=== PATIENT | female | born 1950 | race Caucasian/White ===

== ENCOUNTER 2016-10-16 11:00 | Emergency (ER) | payer BC ==
[~2016-10-16] VITALS: Ht 165.1 cm; Wt 60.0 kg
[2016-10-16 11:16] VITALS: BP_SYST 116; BP_DIAS 82; BP_DIAS 88; PULSE 169; PULSE 88; RESP 16; TEMP 98.2; O2SAT 96
[2016-10-16] MEDS ORDERED: SODIUM CHLOR 0.9% 1000 ML INJ 1,000 ML IV ONE ×2 (12:00→13:00)
[2016-10-16] MEDS ORDERED: SODIUM CHLORIDE 0.9% FLUSH 5 ML FLUSH IVF PRN (12:00)
[2016-10-16] MEDS ORDERED: ONDANSETRON HCL 4 MG/2 ML VIAL IVP ONE (12:00)
[2016-10-16 12:05] VITALS: RESP 18; O2SAT 98
[2016-10-16] MEDS ORDERED: WELC625T2 PO (12:08)
--- NOTE | 2016-10-16 12:17 | PD ---
HPI Chief Complaint: General Weakness Time Seen by Provider: 11:53 Travel History International Travel<30 days: Yes Contact w/Intl Traveler<30days: Yes Name of Country Traveled to: [facility] Traveled to known affect area: No History of Present Illness HPI The patient is a 66-year-old female who presents emergency department for generalized weakness and syncope. The patient states she was waiting in line yesterday at a restaurant, when she suddenly felt dizzy, lightheaded, felt like she was "owing to go down". The patient states she was able to place arm out and fall on a table, the patient thinks there was a brief loss of consciousness. The patient states when she awakened she was extremely diaphoretic. The patient states that the pulled her out of the sun and sat her in the shade which she drank several glasses of water and felt better. The patient then ate lunch, however, when she returned home she developed some nausea and epigastric discomfort. Today the patient complains of nausea but denies any vomiting or abdominal pain. She does complain of generalized weakness and mild dizziness with standing upright. The patient denies any history of arrhythmias or previous syncopal episodes. The patient does have a history of hyperlipidemia. The patient denies any acute chest pain, shortness of breath, or palpitations. The patient does not have a primary physician in the local area, is from [place]. [facility] Past Medical History Narrative Medical Hyperlipidemia Social History Tobacco Use: No Allergies-Medications (Allergen,Severity, Reaction): Coded Allergies: HMG-CoA Reductase Inhibitors (Verified Adverse Reaction, Intermediate, DARK URINE, ABD PAIN, 10/16/16) Reported Meds & Prescriptions Reported Meds & Active Scripts Active Reported Welchol (Colesevelam HCl) 625 Mg Tab 1,250 Mg PO DAILY Review of Systems Except as stated in HPI: all other systems reviewed are Neg General / Constitutional: No: Fever HENT: Positive: Lightheadedness Cardiovascular: Positive: Diaphoresis, Syncope, No: Chest Pain or Discomfort, Tachycardia Respiratory: No: Shortness of Breath Gastrointestinal: Positive: Nausea, Abdominal Pain, No: Vomiting Musculoskeletal: Positive: Weakness Neurologic: Positive: Weakness, Dizziness, Syncope Physical Exam Narrative GENERAL: Awake, alert, pleasant 66-year-old female who appears her stated age and is in no acute respiratory distress. SKIN: Warm and dry. HEAD: Atraumatic. Normocephalic. EYES: Pupils equal and round. No injection or drainage. ENT: No nasal bleeding or discharge. Mucous membranes pink and moist. NECK: Trachea midline. No JVD. CARDIOVASCULAR: Regular rate and rhythm. No murmur appreciated. RESPIRATORY: No accessory muscle use. Clear to auscultation. Breath sounds equal bilaterally. GASTROINTESTINAL: Abdomen soft, non-tender, nondistended. No rebound tenderness. MUSCULOSKELETAL: No obvious deformities. No clubbing. No cyanosis. No edema. NEUROLOGICAL: Awake and alert. No obvious cranial nerve deficits. Motor grossly within normal limits. Normal speech. PSYCHIATRIC: Appropriate mood and affect; insight and judgment normal. Data Data Last Documented VS Vital Signs Date Time Temp Pulse Resp B/P Pulse Ox O2 Delivery O2 Flow Rate FiO2 10/16/16 12:43 69 16 132/82 71 16 123/81 92 16 105/78 10/16/16 12:05 98 Room Air 10/16/16 11:16 98.2 Orders Electrocardiogram (10/16/16 12:00) Complete Blood Count With Diff (10/16/16 12:00) Comprehensive Metabolic Panel (10/16/16 12:00) Magnesium (Mg) (10/16/16 12:00) Ckmb (Isoenzyme) Profile (10/16/16 12:00) Troponin I (10/16/16 12:00) Ecg Monitoring (10/16/16 12:00) Iv Access Insert/Monitor (10/16/16 12:00) Oximetry (10/16/16 12:00) Ondansetron Inj (Zofran Inj) (10/16/16 12:00) Sodium Chloride 0.9% Flush (Ns Flush) (10/16/16 12:00) Sodium Chlor 0.9% 1000 Ml Inj (Ns 1000 M (10/16/16 12:00) Orthostatic Vital Signs (10/16/16 12:00) Sodium Chlor 0.9% 1000 Ml Inj (Ns 1000 M (10/16/16 13:00) CKMB (10/16/16 12:20) CKMB% (10/16/16 12:20) Labs Laboratory Tests Test 10/16/16 12:20 White Blood Count 4.5 TH/MM3 Red Blood Count 4.24 MIL/MM3 Hemoglobin 13.4 GM/DL Hematocrit 40.1 % Mean Corpuscular Volume 94.7 FL Mean Corpuscular Hemoglobin 31.7 PG Mean Corpuscular Hemoglobin 33.4 % Concent Red Cell Distribution Width 11.9 % Platelet Count 222 TH/MM3 Mean Platelet Volume 7.3 FL Neutrophils (%) (Auto) 49.0 % Lymphocytes (%) (Auto) 37.0 % Monocytes (%) (Auto) 10.5 % Eosinophils (%) (Auto) 2.6 % Basophils (%) (Auto) 0.9 % Neutrophils # (Auto) 2.2 TH/MM3 Lymphocytes # (Auto) 1.7 TH/MM3 Monocytes # (Auto) 0.5 TH/MM3 Eosinophils # (Auto) 0.1 TH/MM3 Basophils # (Auto) 0.0 TH/MM3 CBC Comment DIFF FINAL Differential Comment Sodium Level 137 MEQ/L Potassium Level 4.1 MEQ/L Chloride Level 102 MEQ/L Carbon Dioxide Level 24.3 MEQ/L Anion Gap 11 MEQ/L Blood Urea Nitrogen 10 MG/DL Creatinine 0.77 MG/DL Estimat Glomerular Filtration 75 ML/MIN Rate Random Glucose 85 MG/DL Calcium Level 8.8 MG/DL Magnesium Level 2.3 MG/DL Total Bilirubin 0.4 MG/DL Aspartate Amino Transf 34 U/L (AST/SGOT) Alanine Aminotransferase 42 U/L (ALT/SGPT) Alkaline Phosphatase 78 U/L Total Creatine Kinase 154 U/L Creatine Kinase MB 2.9 NG/ML Troponin I LESS THAN 0.02 NG/ML Total Protein 8.1 GM/DL Albumin 3.9 GM/DL MDM Medical Decision Making Medical Screen Exam Complete: Yes Emergency Medical Condition: Yes Medical Record Reviewed: Yes Interpretation(s) EKG reveals normal sinus rhythm with a rate of 77. Inverted T-wave in lead 3. Q wave noted in lead V1 and V2. QTC 429 ms. QT is less than half RR interval. Laboratory Tests Test 10/16/16 12:20 White Blood Count 4.5 TH/MM3 Red Blood Count 4.24 MIL/MM3 Hemoglobin 13.4 GM/DL Hematocrit 40.1 % Mean Corpuscular Volume 94.7 FL Mean Corpuscular Hemoglobin 31.7 PG Mean Corpuscular Hemoglobin 33.4 % Concent Red Cell Distribution Width 11.9 % Platelet Count 222 TH/MM3 Mean Platelet Volume 7.3 FL Neutrophils (%) (Auto) 49.0 % Lymphocytes (%) (Auto) 37.0 % Monocytes (%) (Auto) 10.5 % Eosinophils (%) (Auto) 2.6 % Basophils (%) (Auto) 0.9 % Neutrophils # (Auto) 2.2 TH/MM3 Lymphocytes # (Auto) 1.7 TH/MM3 Monocytes # (Auto) 0.5 TH/MM3 Eosinophils # (Auto) 0.1 TH/MM3 Basophils # (Auto) 0.0 TH/MM3 CBC Comment DIFF FINAL Differential Comment Sodium Level 137 MEQ/L Potassium Level 4.1 MEQ/L Chloride Level 102 MEQ/L Carbon Dioxide Level 24.3 MEQ/L Anion Gap 11 MEQ/L Blood Urea Nitrogen 10 MG/DL Creatinine 0.77 MG/DL Estimat Glomerular Filtration 75 ML/MIN Rate Random Glucose 85 MG/DL Calcium Level 8.8 MG/DL Magnesium Level 2.3 MG/DL Total Bilirubin 0.4 MG/DL Aspartate Amino Transf 34 U/L (AST/SGOT) Alanine Aminotransferase 42 U/L (ALT/SGPT) Alkaline Phosphatase 78 U/L Total Creatine Kinase 154 U/L Creatine Kinase MB 2.9 NG/ML Troponin I LESS THAN 0.02 NG/ML Total Protein 8.1 GM/DL Albumin 3.9 GM/DL Differential Diagnosis Differential diagnosis includes syncope, vasovagal syncope, neurogenic cardiogenic syncope, arrhythmia, aortic stenosis, dehydration, orthostatic hypotension, electrolyte abnormality. Narrative Course IV was established, labs are drawn and sent, and the patient was placed on cardiac telemetry monitoring and continuous pulse oximetry monitoring. EKG was ordered and interpreted. Orthostatic vital signs were obtained. The patient was administered 1 L of fluids and Zofran 4 mg intravenously. Laboratory evaluation was unremarkable. Orthostatic vital signs were positive, the patient 's systolic blood pressure went from 132-109 and heart rate went from 60s to the 90s, therefore, patient was administered a second liter of IV fluids. The patient was reevaluated at 1:20 PM, her symptoms had significantly improved. I believe the patient's presyncopal/syncopal episode yesterday with the diaphoresis and nausea was related to vasovagal and possibly dehydration. The patient had no significant EKG abnormalities and cardiac telemetry did not reveal any abnormalities. The patient was not hypoxic or tachycardic, I do not believe this is related to pulmonary embolism. The patient had no headache and was nonfocal on exam, do not believe its related to subarachnoid hemorrhage. I do not believe the patient had an arrhythmia at that time, however, did advise her it is a possibility and that she needs to follow-up with her power chisel operator. Advised her to return if symptoms worsen or return, and the follow-up with a power chisel operator for outpatient echocardiogram. Patient agrees and understands. The patient will be provided a copy of her labs at discharge. Diagnosis Primary Impression: Syncope Qualified Code: R55 - Syncope, unspecified syncope type Patient Instructions: General Instructions Additional Instructions: Plenty fluids to stay hydrated. Follow-up with her power chisel operator for outpatient echocardiogram. Return if symptoms worsen or progress. Plenty fluids to stay hydrated. Please provide the patient a copy of her EKG and lab work at discharge. Disposition: 01 DISCHARGE HOME Condition: Stable Brandon Mcelroy MD Oct 16, 2016 12:17
[2016-10-16 12:32] LABS: AUTOMATED NEUTROPHIL # 2.2 TH/MM3 (1.8-7.7); BASOPHIL % 0.9 % (0.0-2.0); EOSINOPHIL # 0.1 TH/MM3 (0-0.4); EOSINOPHIL % 2.6 % (0.0-4.0); HEMATOCRIT 40.1 % (35.0-46.0); LYMPHOCYTE # 1.7 TH/MM3 (1.0-4.8); MEAN CELL VOLUME 94.7 FL (80.0-100.0); MEAN CORPUSCULAR HEMOGLOBIN 31.7 PG (27.0-34.0); MEAN CORPUSCULAR HGB CONC 33.4 % (32.0-36.0); MONO % 10.5 % (0.0-8.0); PLATELET COUNT 222 TH/MM3 (150-450); RED BLOOD COUNT 4.24 MIL/MM3 (4.00-5.30); RED CELL DISTRIBUTION WIDTH 11.9 % (11.6-17.2); WHITE BLOOD COUNT 4.5 TH/MM3 (4.0-11.0)
[2016-10-16 12:35] LABS: HEMO FLAGS DIFF FINAL
[2016-10-16 12:38] LABS: CHLORIDE 102 MEQ/L (98-107); POTASSIUM 4.1 MEQ/L (3.5-5.1); SODIUM (NA) 137 MEQ/L (136-145)
[2016-10-16 12:42] LABS: ANION GAP 11 MEQ/L (5-15); BICARBONATE 24.3 MEQ/L (21.0-32.0); BLOOD UREA NITROGEN 10 MG/DL (7-18); MAGNESIUM 2.3 MG/DL (1.5-2.5)
[2016-10-16 12:43] VITALS: BP_SYST 105; BP_SYST 123; BP_SYST 132; BP_DIAS 78; BP_DIAS 81; BP_DIAS 82; RESP 16
[2016-10-16 12:45] LABS: ALT (GPT) 42 U/L (10-53); AST (GOT) 34 U/L (15-37)
[2016-10-16 12:46] LABS: GLOMERULAR FILTRATION RATE 75 ML/MIN (>89)
[2016-10-16 12:47] LABS: TOTAL BILIRUBIN ADULT 0.4 MG/DL (0.2-1.0)
[2016-10-16 12:48] LABS: ALKALINE PHOSPHATASE 78 U/L (45-117); CREATINE KINASE 154 U/L (26-192)
[2016-10-16 13:01] LABS: CKMB 2.9 NG/ML (0.5-3.6)
[2016-10-16 13:22] VITALS: BP 152/93; PULSE 68; RESP 16; O2SAT 98
[2016-10-16 14:30] VITALS: BP 140/82; PULSE 76; RESP 18; O2SAT 98
--- NOTE | 2016-10-17 11:33 | EKG ---
Date Performed: 10/16/2016 Time Performed: 12:14:30 PTAGE: 66 years EKG: Sinus rhythm Possible septal infarct - age undetermined Abnormal ECG NO PREVIOUS TRACING DOCTOR: Hal Seo Interpretating Date/Time 10/17/2016 11:33:03
== END 2016-10-16 14:36 | disposition home or self-care (01) ==
LOC: PHED 11:00
DX: R55 Syncope and collapse (principal); E78.5 Hyperlipidemia, unspecified
CPT/HCPCS: 80053; 82550; 82552; 83735; 84484; 85025; 93005; 96361; 96374; 99285; J2405; J7030

== ENCOUNTER 2017-11-19 17:25 | Emergency (ER) | payer MEDICARE ==
[~2017-11-19] VITALS: Ht 165.1 cm; Wt 61.0 kg
[~2017-11-19 17:25] MED LIST: COLE625 PO
[2017-11-19 17:28] VITALS: BP 148/80; PULSE 90; RESP 18; TEMP 99.7; O2SAT 97
[2017-11-19] MEDS ORDERED: SODIUM CHLORIDE 0.9% FLUSH 10 ML FLUSH IV FLUSH PRN (17:45)
[2017-11-19] MEDS ORDERED: KETOROLAC TROMETHAMINE 30 MG/ML (IVP) VIAL IVP ONE (17:45)
[2017-11-19] MEDS ORDERED: SODIUM CHLOR 0.9% 1000 ML INJ 1,000 ML IV SCH (17:45)
--- NOTE | 2017-11-19 18:05 | PD ---
HPI Chief Complaint: Abdominal Pain Time Seen by Provider: 17:45 Travel History International Travel<30 days: No Contact w/Intl Traveler<30days: No Traveled to known affect area: No History of Present Illness HPI 67-year-old female patient presents to the ER today with 2 days history of left sided abdominal pains which she currently rates an 8 out of 10. She denies any nausea, vomiting, fevers, urinary symptoms, or any other symptoms. She states that pain is worse with movement, was hurting today when she was riding a bicycle, and felt like it was hurting with every bump. She denies any previous symptoms. Modifying Factors: None Associated Signs & Symptoms: Left-sided abdominal pain Risk Factors: None PFSH Past Medical History High Cholesterol: Yes ?: Not Social History Alcohol Use: Yes (daily 3 mixed drinks) Tobacco Use: No Substance Use: No Allergies-Medications (Allergen,Severity, Reaction): Coded Allergies: amlodipine (Unverified Adverse Reaction, Intermediate, DARK URINE, ABD PAIN, 11/19/17) atorvastatin (Unverified Adverse Reaction, Intermediate, DARK URINE, ABD PAIN, 11/19/17) pravastatin (Unverified Adverse Reaction, Intermediate, DARK URINE, ABD PAIN, 11/19/17) simvastatin (Unverified Adverse Reaction, Intermediate, DARK URINE, ABD PAIN, 11/19/17) Reported Meds & Prescriptions Reported Meds & Active Scripts Active Reported Welchol (Colesevelam HCl) 625 Mg Tab 1,250 Mg PO DAILY Review of Systems Except as stated in HPI: all other systems reviewed are Neg Physical Exam Narrative GENERAL: Well-developed elderly female patient currently in mild distress. Awake and oriented 3. SKIN: Focused skin assessment warm/dry. HEAD: Atraumatic. Normocephalic. EYES: Pupils equal and round. No scleral icterus. No injection or drainage. ENT: No nasal bleeding or discharge. Mucous membranes pink and moist. NECK: Trachea midline. No JVD. CARDIOVASCULAR: Regular rate and rhythm. No murmur appreciated. RESPIRATORY: No accessory muscle use. Clear to auscultation. Breath sounds equal bilaterally. GASTROINTESTINAL: Abdomen soft, left-sided abdominal tenderness without guarding or rebound, nondistended. Hepatic and splenic margins not palpable. MUSCULOSKELETAL: No obvious deformities. No clubbing. No cyanosis. No edema. NEUROLOGICAL: Awake and alert. No obvious cranial nerve deficits. Motor grossly within normal limits. Normal speech. PSYCHIATRIC: Appropriate mood and affect; insight and judgment normal. Data Data Last Documented VS Vital Signs Date Time Temp Pulse Resp B/P (MAP) Pulse Ox O2 Delivery O2 Flow Rate FiO2 11/19/17 19:51 98.3 70 20 145/88 (107) 97 11/19/17 18:12 Room Air Orders Orders Complete Blood Count With Diff (11/19/17 17:45) Comprehensive Metabolic Panel (11/19/17 17:45) Lipase (11/19/17 17:45) Urinalysis - C+S If Indicated (11/19/17 17:45) Ct Abd/Pel W Iv Contrast(Rout) (11/19/17 17:45) Iv Access Insert/Monitor (11/19/17 17:45) Ecg Monitoring (11/19/17 17:45) Oximetry (11/19/17 17:45) Sodium Chlor 0.9% 1000 Ml Inj (Ns 1000 M (11/19/17 17:45) Sodium Chloride 0.9% Flush (Ns Flush) (11/19/17 17:45) Ketorolac Inj (Toradol Inj) (11/19/17 17:45) Urine Culture (11/19/17 17:55) Iohexol 350 Inj (Omnipaque 350 Inj) (11/19/17 19:20) Ed Discharge Order (11/19/17 20:13) Labs Laboratory Tests Test 11/19/17 17:55 White Blood Count 9.1 TH/MM3 Red Blood Count 3.84 MIL/MM3 Hemoglobin 12.3 GM/DL Hematocrit 36.7 % Mean Corpuscular Volume 95.5 FL Mean Corpuscular Hemoglobin 32.0 PG Mean Corpuscular Hemoglobin Concent 33.5 % Red Cell Distribution Width 12.0 % Platelet Count 225 TH/MM3 Mean Platelet Volume 7.4 FL Neutrophils (%) (Auto) 73.8 % Lymphocytes (%) (Auto) 15.7 % Monocytes (%) (Auto) 8.5 % Eosinophils (%) (Auto) 1.2 % Basophils (%) (Auto) 0.8 % Neutrophils # (Auto) 6.7 TH/MM3 Lymphocytes # (Auto) 1.4 TH/MM3 Monocytes # (Auto) 0.8 TH/MM3 Eosinophils # (Auto) 0.1 TH/MM3 Basophils # (Auto) 0.1 TH/MM3 CBC Comment DIFF FINAL Differential Comment Urine Collection Type CLEAN CATCH Urine Color YELLOW Urine Turbidity SL CLOUDY Urine pH 8.0 Urine Specific [place] 1.010 Urine Protein NEG mg/dL Urine Glucose (UA) NEG mg/dL Urine Ketones NEG mg/dL Urine Occult Blood NEG Urine Nitrite NEG Urine Bilirubin NEG Urine Urobilinogen 0.2 MG/DL Urine Leukocyte Esterase LARGE Urine RBC 0-3 /hpf Urine WBC 15-19 /hpf Urine WBC Clumps OCC Urine Squamous Epithelial Cells 0-5 /hpf Urine Bacteria MOD /hpf Microscopic Urinalysis Comment CULTURE INDICATED Urine Collection Time 17:55 Blood Urea Nitrogen 11 MG/DL Creatinine 0.74 MG/DL Random Glucose 96 MG/DL Total Protein 7.6 GM/DL Albumin 3.6 GM/DL Calcium Level 9.1 MG/DL Alkaline Phosphatase 84 U/L Aspartate Amino Transf (AST/SGOT) 21 U/L Alanine Aminotransferase (ALT/SGPT) 21 U/L Total Bilirubin 0.5 MG/DL Sodium Level 126 MEQ/L Potassium Level 3.9 MEQ/L Chloride Level 92 MEQ/L Carbon Dioxide Level 23.7 MEQ/L Anion Gap 10 MEQ/L Estimat Glomerular Filtration Rate 79 ML/MIN Lipase 152 U/L [facility] Medical Decision Making Medical Screen Exam Complete: Yes Emergency Medical Condition: Yes Medical Record Reviewed: Yes Interpretation(s) Laboratory Tests Test 11/19/17 17:55 Red Blood Count 3.84 MIL/MM3 (4.00-5.30) Neutrophils (%) (Auto) 73.8 % (16.0-70.0) Monocytes (%) (Auto) 8.5 % (0.0-8.0) Urine Leukocyte Esterase LARGE (NEG) Urine WBC 15-19 /hpf (0-5) Urine WBC Clumps OCC (NONE) Urine Bacteria MOD /hpf (NONE) Sodium Level 126 MEQ/L (136-145) Chloride Level 92 MEQ/L (98-107) Estimat Glomerular Filtration Rate 79 ML/MIN (>89) Last 24 hours Impressions Abdomen/Pelvis CT 11/19/17 0917 Signed Impressions: Service Date/Time: Sunday, November 19, 2017 19:15 - CONCLUSION: 1. Focal mural thickening of the distal sigmoid colon characteristic of an acute diverticulitis without abscess, obstruction, free fluid or free air. Howard Lebron MD Differential Diagnosis Left-sided abdominal pains: Muscular skeletal versus renal colic versus pancreatitis versus diverticulitis Narrative Course Lab work shows UTI and CAT scan is showing signs of an acute diverticulitis. At this point, my plan would be to treat both with antibiotics and have her follow-up with her primary care doctor. Return for any worsening in pain, fevers, or new symptoms as needed. The plan has been discussed with her and she states understanding. Diagnosis Primary Impression: Diverticulitis Additional Impression: UTI (urinary tract infection) Med/Other Pt SpecificInfo: Prescription(s) given Scripts Ibuprofen (Ibuprofen) 600 Mg Tab 600 MG PO Q6H Y for Pain/Inflammation, #20 TAB 0 Refills Prov: Rox Stevenson MD 11/19/17 Metronidazole (Flagyl) 500 Mg Tab 500 MG PO TID for Infection for 7 Days, TAB 0 Refills Prov: Rox Stevenson MD 11/19/17 Ciprofloxacin (Cipro) 500 Mg Tab 500 MG PO BID for Infection for 7 Days, #14 TAB 0 Refills Prov: Rox Stevenson MD 11/19/17 Disposition: 01 DISCHARGE HOME Condition: Stable Rox Stevenson MD Nov 19, 2017 18:05
[2017-11-19 18:07] LABS: AUTOMATED NEUTROPHIL # 6.7 TH/MM3 (1.8-7.7); BASOPHIL # 0.1 TH/MM3 (0-0.2); BASOPHIL % 0.8 % (0.0-2.0); EOSINOPHIL # 0.1 TH/MM3 (0-0.4); EOSINOPHIL % 1.2 % (0.0-4.0); HEMATOCRIT 36.7 % (35.0-46.0); HEMOGLOBIN 12.3 GM/DL (11.6-15.3); LYMPH % 15.7 % (9.0-44.0); LYMPHOCYTE # 1.4 TH/MM3 (1.0-4.8); MEAN CELL VOLUME 95.5 FL (80.0-100.0); MEAN CORPUSCULAR HGB CONC 33.5 % (32.0-36.0); MEAN PLATELET VOLUME 7.4 FL (7.0-11.0); MONO % 8.5 % (0.0-8.0); MONOCYTE # 0.8 TH/MM3 (0-0.9); NEUT % 73.8 % (16.0-70.0); PLATELET COUNT 225 TH/MM3 (150-450); RED BLOOD COUNT 3.84 MIL/MM3 (4.00-5.30); WHITE BLOOD COUNT 9.1 TH/MM3 (4.0-11.0)
[2017-11-19 18:08] LABS: BILIRUBIN, URINE NEG (NEG); BLOOD, URINE NEG (NEG); GLUCOSE,URINE NEG (NEG); KETONE, URINE NEG (NEG); NITRITE,URINE NEG (NEG); URINE COLOR YELLOW (YELLW/STRAW); URINE LEUKOCYTE ESTERASE LARGE (NEG)
[2017-11-19 18:12] VITALS: RESP 16; O2SAT 96
[2017-11-19 18:12] LABS: RBC, URINE 0-3 /hpf (0-3); SQUAMOUS EPITHELIAL CELL URINE 0-5 /hpf (0-5); WBC, URINE 15-19 /hpf (0-5); WHITE BLOOD CELL CLUMPS OCC
[2017-11-19 18:13] LABS: BACTERIA, URINE MOD /hpf
[2017-11-19 18:27] LABS: CHLORIDE 92 MEQ/L (98-107); SODIUM (NA) 126 MEQ/L (136-145)
[2017-11-19 18:30] LABS: CALCIUM 9.1 MG/DL (8.5-10.1)
[2017-11-19 18:31] LABS: ALBUMIN 3.6 GM/DL (3.4-5.0); BICARBONATE 23.7 MEQ/L (21.0-32.0); BLOOD UREA NITROGEN 11 MG/DL (7-18); GLUCOSE,RANDOM 96 MG/DL (74-106)
[2017-11-19 18:34] LABS: ALT (GPT) 21 U/L (10-53); AST (GOT) 21 U/L (15-37); CREATININE 0.74 MG/DL (0.50-1.00); GLOMERULAR FILTRATION RATE 79 ML/MIN (>89)
[2017-11-19 18:35] LABS: TOTAL BILIRUBIN ADULT 0.5 MG/DL (0.2-1.0); TOTAL PROTEIN 7.6 GM/DL (6.4-8.2)
[2017-11-19 18:37] LABS: ALKALINE PHOSPHATASE 84 U/L (45-117)
[2017-11-19 19:06] VITALS: BP 149/95; PULSE 73; RESP 20; O2SAT 96
[2017-11-19] MEDS ORDERED: IOHEXOL 350 MG/ML 10 ML VIAL (for RAD DIAG) IVCONTRAST ONE (19:20)
[2017-11-19 19:51] VITALS: BP 145/88; PULSE 70; RESP 20; TEMP 98.3; O2SAT 97
--- NOTE | 2017-11-19 19:55 | RADRPT ---
EXAM DATE/TIME: 11/19/2017 19:15 [facility] COMPARISON: No previous studies available for comparison. INDICATIONS : Left lower quadrant pain with nausea. IV CONTRAST: 95 cc Omnipaque 350 (iohexol) IV ORAL CONTRAST: No oral contrast ingested. RADIATION DOSE: 6.73 CTDIvol (mGy) MEDICAL HISTORY : Hypercholesterolemia. SURGICAL HISTORY : None. ENCOUNTER: Initial ACUITY: 2 days PAIN SCALE: 5/10 LOCATION: Left lower quadrant TECHNIQUE: Volumetric scanning of the abdomen and pelvis was performed. Using automated exposure control and ad justment of the mA and/or kV according to patient size, radiation dose was kept as low as reasonably achievable to obtain optimal diagnostic quality images. DICOM format image data is available electro nically for review and comparison. FINDINGS: There is focal mural thickening of the distal sigmoid colon in the left adnexal region with numerous diverticula most characteristic of an acute diverticulitis. Dependent atelectasis in the lungs. No acute findings in the liver, spleen, adrenals, kidneys or panc reas. No calcified gallstones or biliary ductal dilatation. There is mild constipation. No acute bony abnormalities. CONCLUSION: 1. Focal mural thickening of the distal sigmoid colon characteristic of an acute diverticulitis witho ut abscess, obstruction, free fluid or free air. Howard Lebron MD on November 19, 2017 at 19:49 Board Certified Radiologist. This report was verified electronically.
[2017-11-19] MEDS ORDERED: CIPR-9 PO (20:16)
[2017-11-19] MEDS ORDERED: IBUP-232 PO (20:16)
[2017-11-19] MEDS ORDERED: METR-1 PO (20:16)
== END 2017-11-19 20:35 | disposition home or self-care (01) ==
LOC: PHED 17:25
DX: K57.92 Diverticulitis of intestine, part unspecified, without perforation or abscess without bleeding (principal); N39.0 Urinary tract infection, site not specified; B96.20 Unspecified Escherichia coli [E. coli] as the cause of diseases classified elsewhere; E78.00 Pure hypercholesterolemia, unspecified; Z79.899 Other long term (current) drug therapy; Z88.8 Allergy status to other drugs, medicaments and biological substances
CPT/HCPCS: 74177; 80053; 81001; 83690; 85025; 87077; 87086; 87186; 96361; 96374; 99284; J1885; J7030; Q9967

== ENCOUNTER 2017-12-02 07:36 | Emergency (ER) | payer MEDICARE ==
[~2017-12-02] VITALS: Ht 165.1 cm; Wt 58.7 kg
[~2017-12-02 07:36] MED LIST changes: +CIPR-9 PO; +IBUP-232 PO; +METR-1 PO
[2017-12-02 07:37] VITALS: BP 155/90; PULSE 86; RESP 16; TEMP 98.5; O2SAT 98
[2017-12-02] MEDS ORDERED: ANTICRE6 (07:47)
[2017-12-02] MEDS ORDERED: ACETAMINOPHEN/HYDROcodone 325 MG/5 MG TAB PO ONE (08:00)
--- NOTE | 2017-12-02 08:00 | PD ---
HPI Chief Complaint: Back/ Neck Pain or Injury Time Seen by Provider: 07:45 Travel History International Travel<30 days: No Contact w/Intl Traveler<30days: No Traveled to known affect area: No History of Present Illness HPI This 67-year-old female is complaining of pain on the right side of the neck and shoulder. She felt well when she went to bed. She was not having any discomfort. She woke up this morning and had pain at the base of the neck and the right side and pain in the shoulder. It is very painful for her to move the shoulder. She has not had any fever or chills. There is no history of injury. She did play [employer] ball yesterday but has played before and has never had any trouble. She does not have chronic problems with her neck or shoulder there are no paresthesias PFSH Past Medical History High Cholesterol: Yes Diminished Hearing: No Gastrointestinal Disorders: Yes (DIVERTICULITIS) Influenza Vaccination: Yes ?: Not Social History Alcohol Use: Yes (daily 3 mixed drinks) Tobacco Use: No Substance Use: No Allergies-Medications (Allergen,Severity, Reaction): Coded Allergies: amlodipine (Unverified Adverse Reaction, Intermediate, DARK URINE, ABD PAIN, 12/02/17) atorvastatin (Unverified Adverse Reaction, Intermediate, DARK URINE, ABD PAIN, 12/02/17) pravastatin (Unverified Adverse Reaction, Intermediate, DARK URINE, ABD PAIN, 12/02/17) simvastatin (Unverified Adverse Reaction, Intermediate, DARK URINE, ABD PAIN, 12/02/17) Reported Meds & Prescriptions Reported Meds & Active Scripts Active Reported [Antibiotic] Welchol (Colesevelam HCl) 625 Mg Tab 1,250 Mg PO DAILY Review of Systems General / Constitutional: No: Fever, Chills HENT: No: Headaches Cardiovascular: No: Chest Pain or Discomfort Respiratory: No: Shortness of Breath Musculoskeletal: Positive: Myalgias, Pain Skin: No Rash Endocrine: No: Heat Intolerance Hematologic/Lymphatic: No: Easy Bruising Physical Exam Narrative GENERAL: Well-developed female SKIN: Focused skin assessment warm/dry. HEAD: Atraumatic. Normocephalic. EYES: Pupils equal and round. No scleral icterus. No injection or drainage. ENT: No nasal bleeding or discharge. Mucous membranes pink and moist. NECK: Trachea midline. No JVD. Tenderness of the base of the right side of the neck CARDIOVASCULAR: Regular rate and rhythm. No murmur appreciated. RESPIRATORY: No accessory muscle use. Clear to auscultation. Breath sounds equal bilaterally. GASTROINTESTINAL: Abdomen soft, non-tender, nondistended. Hepatic and splenic margins not palpable. MUSCULOSKELETAL: No obvious deformities. No clubbing. No cyanosis. No edema. She has point tenderness around the shoulder. There is no erythema or obvious swelling. She has a lot of pain with any movement of the shoulder. 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 No obvious cranial nerve deficits. Motor grossly within normal limits. Normal speech. PSYCHIATRIC: Appropriate mood and affect; insight and judgment normal. Data Data Last Documented VS Vital Signs Date Time Temp Pulse Resp B/P (MAP) Pulse Ox O2 Delivery O2 Flow Rate FiO2 12/02/17 08:35 16 12/02/17 07:37 98.5 86 155/90 (111) 98 Orders Orders Acetamin-Hydrocod 325-5 Mg ([place] 5-325 (12/02/17 08:00) Shoulder, Complete (>2vws) (12/02/17 07:52) Spine, Cervical Compl([id number]) (12/02/17 07:52) MDM Medical Decision Making Medical Screen Exam Complete: Yes Emergency Medical Condition: Yes Medical Record Reviewed: Yes Differential Diagnosis Differential includes bursitis, radiculopathy Narrative Course X-ray of the neck show some degenerative changes. An x-ray of the right shoulder was obtained and there is a displaced and slightly comminuted distal clavicle fracture. Patient does not recall any trauma and said she had no pain when she went to bed. She does say that she sleep walks. She does not have a history of seizures. She is returning to [place] in about 10 days and will follow up with an orthopedic doctor then. We will put her in a sling in the meantime Diagnosis Primary Impression: Fracture, clavicle Scripts Hydrocodone-Acetaminophen ([place]) 7.5-325 mg Tab 1 TAB PO Q4H Y for PAIN, #12 TAB 0 Refills Prov: Miles White MD 12/02/17 Disposition: 01 DISCHARGE HOME Condition: Stable Miles White MD Dec 02, 2017 08:00
[2017-12-02 08:35] VITALS: RESP 16
--- NOTE | 2017-12-02 08:44 | RADRPT ---
EXAM DATE/TIME: 12/02/2017 08:08 [facility] COMPARISON: No previous studies available for comparison. INDICATIONS : Right shoulder pain MEDICAL HISTORY : None. SURGICAL HISTORY : None. ENCOUNTER: Initial ACUITY: 1 day PAIN SCORE: 7/10 LOCATION: upper extremity FINDINGS: Multiple view examination of the right shoulder demonstrates a fracture distal clavicle with slight d isplacement and minimal comminution. Shoulder is otherwise intact. Bony mineralization is normal. CONCLUSION: 1. Displaced and slightly comminuted distal clavicle fracture. Angel Lazcano MD on December 02, 2017 at 8:42 Board Certified Radiologist. This report was verified electronically.
--- NOTE | 2017-12-02 08:46 | RADRPT ---
EXAM DATE/TIME: 12/02/2017 08:08 [facility] COMPARISON: No previous studies available for comparison. INDICATIONS : Neck Pain no trauma MEDICAL HISTORY : None. SURGICAL HISTORY : None. ENCOUNTER: Initial ACUITY: 1 day PAIN SCORE: 7/10 LOCATION: neck pain FINDINGS: Five view examination was performed. There is normal alignment and curvature of the vertebral bodies down to the level of C7. No evidence of fracture. Minimal atrophy C5 and 6. Prominent degenerative changes C5-C7. Mild neural foraminal encroachment at C5-6 and C6-7 levels bilaterally. Vertebral body height is normal. CONCLUSION: Prominent degenerative changes lower cervical spine. Angel Lazcano MD on December 02, 2017 at 8:43 Board Certified Radiologist. This report was verified electronically.
[2017-12-02] MEDS ORDERED: HYDR-3288 PO (08:52)
== END 2017-12-02 09:09 | disposition home or self-care (01) ==
LOC: PHED 07:36
DX: S42.031A Displaced fracture of lateral end of right clavicle, initial encounter for closed fracture (principal); X58.XXXA Exposure to other specified factors, initial encounter; E78.00 Pure hypercholesterolemia, unspecified
CPT/HCPCS: 72050; 73030; 99283